=== PATIENT | female | born 1940 | race Caucasian/White ===

== ENCOUNTER → 2016-12-16 | Outpatient (CLI) | payer OTHER, BC | LOC: BHFA 10:45 | PROVIDERS: ATTEND Internal Medicine Cardiovascular Disease | DX: R09.89 Other specified symptoms and signs involving the circulatory and respiratory systems (principal); R55 Syncope and collapse ==

== ENCOUNTER → 2017-07-25 | Outpatient (CLI) | payer OTHER, BC | LOC: BRMIMAGING 14:40 | PROVIDERS: ATTEND Family Medicine | DX: Z12.31 Encounter for screening mammogram for malignant neoplasm of breast (principal) ==

== ENCOUNTER → 2018-09-28 | Outpatient (CLI) | payer OTHER, BC | LOC: FIMAGING 09:23 | PROVIDERS: ATTEND Family Medicine | DX: N20.0 Calculus of kidney (principal); N18.3 Chronic kidney disease, stage 3 (moderate) ==

== ENCOUNTER → 2018-12-12 | Outpatient (CLI) | payer OTHER, BC | LOC: FIMAGING 11:17 ==